=== PATIENT | male | born 1995 | race Two or more races ===

== ENCOUNTER 2025-03-29 10:04 | Emergency (ER) | payer BC ==
[~2025-03-29] VITALS: Ht 182.9 cm; Wt 95.3 kg
[2025-03-29] MEDS ORDERED: FAMOTIDINE/PF 20 MG in 0.9 % SODIUM CHLORIDE 8 ML IV PUSH ONE (11:15)
[2025-03-29] MEDS ORDERED: KETOROLAC TROMETHAMINE 30 MG VIAL IV ONE (11:15)
[2025-03-29] MEDS ORDERED: ONDANSETRON HCL 2 MG/ML VIAL IV ONE (11:15)
[2025-03-29] MEDS ORDERED: 0.9 % SODIUM CHLORIDE 1,000 ML IV ONE (11:15)
[2025-03-29] MEDS ORDERED: KETOROLAC TROMETHAMINE 30 MG VIAL ONE (11:16)
[2025-03-29] MEDS ORDERED: ONDANSETRON HCL 2 MG/ML VIAL ONE (11:16)
[2025-03-29] MEDS ORDERED: FAMOTIDINE/PF 20 MG/2 ML VIAL ONE (11:16)
[2025-03-29 11:29] LABS: BASO % 0.2 % (0.1-1.2); EOS # 0.08 (0.04-0.54); EOS % 0.9 % (0.7-7.0); LYMPH # 2.04 (1.18-3.74); LYMPH % 24.0 % (19.3-53.1); MEAN PLATELET VOLUME 11.20 fl (9.4-12.4); MONO # 0.83 (0.24-0.82); MONO % 9.8 % (4.7-12.5); NEUT # 5.48 (1.56-6.13); NEUT % 64.6 % (34.0-71.1); RED CELL DISTRIBUTION WIDTH 13.0 % (11.6-14.4)
[2025-03-29 12:01] LABS: ALT/SGPT 60.0 U/L (12-78); AST/SGOT 31.0 U/L (15-37); BILIRUBIN TOTAL 0.39 mg/dL (0.3-1.2); BUN CREA RATIO 16.0 (7.0-25.0); CREATININE SERUM 0.85 mg/dL (0.70-1.30); GFR 105.13; GLOBULINA 3.8 G/DL (2.4-3.5); GLUCOSE FASTING 93.0 mg/dL (65-100); OSMOLALITY SERUM 287.0 MOSM/KG (275-295)
[2025-03-29] MEDS ORDERED: INTESTINEX680 M1 PO (15:43)
[2025-03-29] MEDS ORDERED: DICY20TA PO (15:43)
[2025-03-29] MEDS ORDERED: PEPCID AC20 MG PO (15:43)
== END 2025-03-29 15:58 | disposition home or self-care (01) ==
LOC: ER 10:04
PROVIDERS: General Practice
DX: K52.9 Noninfective gastroenteritis and colitis, unspecified (principal); R10.9 Unspecified abdominal pain